=== PATIENT | female | born 1980 | race Caucasian/White ===

== ENCOUNTER 2020-01-18 01:26 | Emergency (ER) | payer OTHER, SELFPAY ==
[2020-01-18 01:28] VITALS: BP 157/82; PULSE 84; RESP 16; TEMP 37; O2SAT 100
--- NOTE | 2020-01-18 01:33 | ED.ANIMALBIT ---
HPI - Animal Bite General Chief Complaint: Skin/Abscess/Foreign Body Stated Complaint: spider bite on my leg Time Seen by Provider: 01/18/20 01:35 Source: patient Mode of arrival: ambulatory Limitations: no limitations History of Present Illness HPI narrative: Patient presents for evaluation of small sore on her left lower leg. Patient states it has been there 2 days. Patient initially thought it was a mosquito bite, then it had a chester on it and began to drain. It is red and slightly painful. No itching. No rash surrounding the area. Patient states she thought it was more red earlier but is now improved. Patient denies any fever. No history of skin infections. She denies history of diabetes. No history of oreilly water. Patient is up-to-date on her tetanus. She denies any puncture wound injury. No other lesions. Related Data Allergies Allergy/AdvReac Type Severity Reaction Status Date / Time No Known Allergies Allergy Verified 01/18/20 01:56 Review of Systems Review of Systems: Narrative: CONSTITUTIONAL: Denies fever CARDIOVASCULAR: Denies chest pain RESPIRATORY: Denies cough or dyspnea. GASTROINTESTINAL: Denies abdominal pain SKIN: Denies rash, sore to left lower extremity MUSCULOSKELETAL: Denies back pain NEUROLOGIC: Denies headache PMFSH Past Medical History Medical History (Updated 01/18/20 @ 01:47 by Marie Jacobs MD) Asthma Surgical History Surgical History (Updated 01/18/20 @ 01:43 by Marie Jacobs MD) H/O: hysterectomy Social History Social History (Updated 01/18/20 @ 01:43 by Marie Jacobs MD) Substance use: never Gender identity (if verbalized by the patient): Female Exam Narrative: Exam Narrative: GENERAL: Awake, alert, conversant HEAD: Normocephalic, atraumatic. EYES: PERRLA and EOMI. ENT: Nares clear, no rhinorrhea or epistaxis. Mucous membranes moist. NECK: Supple. CHEST: No respiratory distress, breathing even and non labored HEART: Regular rate, sinus rhythm ABDOMEN:Non distended, non tender EXTREMITIES: Normal range of motion. No edema. Mild 0.5 cm circular lesion to the medial aspect of the left lower extremity, mildly tender, mild erythema, no fluctuance, no purulent drainage. No calf pain. SKIN: Warm, dry, no rash. NEURO:No focal deficits. Alert and oriented x3 Course Vital Signs Vital signs: Vital Signs Temperature 37.0 C 01/18/20 01:28 Pulse Rate 84 01/18/20 01:28 Respiratory Rate 16 01/18/20 01:28 Blood Pressure 157/82 H 01/18/20 01:28 Pulse Oximetry 100 01/18/20 01:28 Temperature 37.0 C 01/18/20 01:28 Pulse Rate 84 01/18/20 01:28 Respiratory Rate 16 01/18/20 01:28 Blood Pressure 157/82 H 01/18/20 01:28 Pulse Oximetry 100 01/18/20 01:28 MDM - Animal Bite MDM Narrative Medical decision making narrative: Patient presenting for evaluation of sore on her left lower extremity. The time of assessment, ABCs are intact and vital signs are stable. Physical exam is notable for a small lesion which appears to have already drained as there is no current purulent head on the lesion. It is mildly tender, no fluctuance or induration. Mild erythema, mild warmth. This to me looks like an abscess that already had some active drainage. There is no current large abscess. No sign of severe cellulitis. Patient declined pain medication here. Given worsening status, pain, redness, will prescribe outpatient Keflex. Patient was then discharged home. Differential Diagnosis Differential diagnosis: Likely other (Abscess, cellulitis, envenomation, bite wound) Discharge Plan Discharge Clinical Impression: Sore on leg Patient Disposition: Home, Self-Care Condition: Stable Instructions: Antibiotic Form, Wound Infection (ED) Additional Instructions: Please contact your primary care physician for follow up from this visit. If you experience worsening pain, vomiting that does not stop, bleeding complications, chest pain
[2020-01-18 02:22] VITALS: BP 142/84; PULSE 90; RESP 20; O2SAT 98
== END 2020-01-18 02:25 | disposition home or self-care (01) ==
LOC: ANHED 02:17
PROVIDERS: Emergency Provider Emergency Medicine
DX: L98.9 Disorder of the skin and subcutaneous tissue, unspecified (principal); J45.909 Unspecified asthma, uncomplicated
CPT/HCPCS: 99283

== ENCOUNTER 2022-03-10 21:10 | Emergency (ER) | payer OTHER, SELFPAY ==
[2022-03-10 21:12] VITALS: BP 151/112; PULSE 88; RESP 18; TEMP 36.6; O2SAT 100
--- NOTE | 2022-03-10 21:33 | PC.NURSE ---
Radial and ulnar pulse in right wirst located by Doppler and marker at this time.
--- NOTE | 2022-03-10 21:40 | ED.GENADULT ---
HPI - General Adult General Chief complaint: Extremity Injury, Upper Stated complaint: brusing on right hand Time Seen by Provider: 03/10/22 21:29 History of Present Illness HPI narrative: Patient is a 41-year-old female who presents the emergency department with chief complaint of finger pain. Patient states that since January she has been having issues with some discomfort in her right upper extremity and has had dusky fingertips particularly the fifth and fourth digit on the right hand the patient states she also has an area of bruising present on the dorsum of the right distal forearm patient reports that she was seen by her primary provider sent to the emergency department at [facility] had a CTA of her upper extremity that showed no evidence of obstructing vascular process the patient was referred back to her primary who then was going to refer her to vascular and is in the process of setting that up the patient states that it is become exquisitely more painful and reports that she is not able to sleep due to the pain Related Data Allergies Allergy/AdvReac Type Severity Reaction Status Date / Time No Known Allergies Allergy Verified 03/10/22 21:22 Review of Systems Review of Systems: A 10 system review of systems was completed on the patient and is negative except for what is stated in the HPI. Nursing and ancillary documentation was reviewed. PMFSH Past Medical History Medical History Asthma Surgical History Surgical History H/O: hysterectomy Social History Social History Substance use: never Gender identity (if verbalized by the patient): Female Exam Narrative: GENERAL: Well-appearing, well-nourished, and in no acute distress. HEAD: Normocephalic, atraumatic. EYES: PERRLA and EOMI. ENT: Nares clear, no rhinorrhea or epistaxis. Mucous membranes moist. NECK: Supple. CHEST: Clear to auscultation. No respiratory distress. HEART: Regular rate and rhythm. No murmur heard. Normal peripheral pulses. ABDOMEN: Soft, nontender, nondistended, normal active bowel sounds. EXTREMITIES: Normal range of motion. No edema. SKIN: Warm, dry, there is discoloration of the tip of the fourth and fifth digit of the right hand. It is tender to the touch, there is bruising present on the dorsum of the right forearm NEURO: No focal deficits. Alert and oriented x3. PSYCH: Normal mood and affect. Course Course Emergency Course: The patient's records were reviewed from [facility] including her CTA that showed no evidence of occlusion Vital Signs Vital signs: Vital Signs Temperature 36.6 C 03/10/22 21:12 Pulse Rate 88 03/10/22 21:12 Respiratory Rate 18 03/10/22 21:12 Blood Pressure 151/112 H 03/10/22 21:12 Pulse Oximetry 100 03/10/22 21:12 Oxygen Delivery Room Air 03/10/22 21:12 Temperature 36.6 C 03/10/22 21:12 Pulse Rate 88 03/10/22 21:12 Respiratory Rate 18 03/10/22 21:12 Blood Pressure 151/112 H 03/10/22 21:12 Pulse Oximetry 100 03/10/22 21:12 Oxygen Delivery Room Air 03/10/22 21:12 Medical Decision Making Vital Signs Vital Signs: Vital Signs Temperature 36.6 C 03/10/22 21:12 Pulse Rate 88 03/10/22 21:12 Respiratory Rate 18 03/10/22 21:12 Blood Pressure 151/112 H 03/10/22 21:12 Pulse Oximetry 100 03/10/22 21:12 Oxygen Delivery Room Air 03/10/22 21:12 Temperature 36.6 C 03/10/22 21:12 Pulse Rate 88 03/10/22 21:12 Respiratory Rate 18 03/10/22 21:12 Blood Pressure 151/112 H 03/10/22 21:12 Pulse Oximetry 100 03/10/22 21:12 Oxygen Delivery Room Air 03/10/22 21:12 Lab Data Labs: Lab Results 03/10/22 Range/Units 22:01 Urine Color Yellow (Yellow) Urine Appearance Slightly cloudy (Clear) Urine pH 6.0 (5.0-9.0) Ur Specific Grav
[2022-03-10 22:12] LABS: Appearance Urine Slightly Cloudy (Clear); Bilirubin Urine Negative (Negative); Blood Urine Negative (Negative); Color Urine Yellow (Yellow); Glucose Urine UA Negative (Negative); Ketones Urine Negative (Negative); Leukocyte Esterase Ur Negative LEU/UL (Negative); Nitrate Urine Negative (Negative); Protein Urine Negative (Negative); Specific Grav Ur 1.015 (1.001-1.035); Urobilinogen Urine 0.2 mg/dL (<2.0)
[2022-03-10 22:15] LABS: Add Urine Microscopic? YES; Bacteria Urine Trace /hpf; Mucus Urine Rare /lpf; RBC Urine 0-2 /hpf (0-2); Squamous Epithelial Cell Urine Few /hpf (Few); WBC Urine 0-3 /hpf
[2022-03-10] MEDS: HYDROcodone/acetaminophen (*CRX) 5-325 MG TABLET 1 TAB PO (22:24)
--- NOTE | 2022-03-10 22:26 | PC.NURSE ---
PEr Dr. Casper and Charge nurse Kim Shah RN, pt okay to take Snyder tablet at home after d/c. Allergies confirmed and pt verbalized understanding to take medication at home and to not drive after taking it.
[2022-03-10 22:41] VITALS: BP 143/79; PULSE 86; RESP 18; O2SAT 99
== END 2022-03-10 22:42 | disposition home or self-care (01) ==
PROVIDERS: Emergency Provider Emergency Medicine
DX: I77.6 Arteritis, unspecified (principal); J45.909 Unspecified asthma, uncomplicated; Z90.710 Acquired absence of both cervix and uterus
CPT/HCPCS: 81001; 99283; A9270

== ENCOUNTER 2022-03-20 22:16 | Emergency (ER) | payer OTHER, SELFPAY ==
[2022-03-20 22:24] VITALS: BP 147/93; PULSE 101; RESP 16; TEMP 36.3; O2SAT 99
--- NOTE | 2022-03-21 01:27 | ED.GENADULT ---
HPI - General Adult General Chief complaint: Extremity Injury, Upper Stated complaint: right hand pain/bruising, denies injury Time Seen by Provider: 03/21/22 01:14 History of Present Illness HPI narrative: 41-year-old female presenting to the emergency department for evaluation of persistent finger pain. Patient states that since January she has been having issues with some discomfort in her right upper extremity and has had dusky fingertips 3rd, 4th and 5th on the right hand. patient reports that she was seen by her primary provider sent to the emergency department at [facility] had a CTA of her upper extremity that showed no evidence of obstructing vascular process the patient was referred back to her primary who then was going to refer her to vascular and is in the process of setting that up the patient states that it is become exquisitely more painful and reports that she is not able to sleep due to the pain. Patient states since the last time she was in the emergency department she feels that the symptoms have improved but patient is still having some pain. Patient did receive referral from her primary care physician to addiction psychiatrist. Patient is going to recall her primary care physician to seek follow-up with vascular. Patient states that the symptoms are intermittent. States that sometimes the duskiness does progress down the fingers towards the hand but currently it is only the fingertips. Related Data Home Medications Medication Instructions Recorded Confirmed albuterol sulfate 90 mcg/actuation inhalation 03/21/22 03/21/22 aerosol inhaler ibuprofen 200 mg capsule mg 03/21/22 03/21/22 lisinopril 5 mg tablet mg 03/21/22 Allergies Allergy/AdvReac Type Severity Reaction Status Date / Time No Known Allergies Allergy Verified 03/21/22 01:15 Review of Systems Review of Systems: CONSTITUTIONAL: Denies fever, chills, or sweats. EYES: Denies visual changes, redness, or discharge. ENT: Denies rhinorrhea, congestion, sore throat, or otalgia. CARDIOVASCULAR: Denies chest pain, palpitations, or edema. RESPIRATORY: Denies cough or dyspnea. GASTROINTESTINAL: Denies abdominal pain, nausea, vomiting, or diarrhea. GENITOURINARY: Denies dysuria or hematuria. SKIN: See HPI MUSCULOSKELETAL: Denies back pain, joint pain, or myalgia. NEUROLOGIC: Denies headache, numbness, or weakness. [facility] Past Medical History Medical History Asthma Surgical History Surgical History H/O: hysterectomy Social History Social History Substance use: never Gender identity (if verbalized by the patient): Female Exam Narrative: APPEARANCE: Well appearing, no pain, no distress, well-nourished. HEAD: normocephalic, atraumatic. EYES: PERRLA/EOMI, conjunctivae clear. NOSE: Normal no drainage NECK: Supple. No adenopathy, no masses. RESPIRATORY: Airway patent, respirations nonlabored. Clear to auscultation bilaterally, no rales, rhonchi, wheezing. CARDIOVASCULAR: Regular rate and rhythm without murmurs rubs or gallops. ABDOMINAL: Soft, nontender, nondistended, normal bowel sounds MUSCULOSKELETAL: Moves all extremities. Strength/ROM intact, No edema, No calf tenderness. NEURO: Alert. Cranial nerves II through XII intact. Good gait. Good coordination SKIN: Duskiness of the distal aspects of the third fourth and fifth fingertips normal cap refill for first and second phalanx of the affected fingers. Slowed Refill of the distal phalanx of the third, fourth and fifth finger. PSYCHIATRIC: Normal affect/mood. Course Course Emergency Course: Patient was requesting medications for pain control. Patient has had previous CTA showing normal blood flow. Patient is intending to seek out patient follow-up with vascular surgery. Patient does have follow-up scheduled with rheumatol
[2022-03-21] MEDS: HYDROcodone/acetaminophen (*CRX) 5-325 MG TABLET 1 TAB PO (01:49)
== END 2022-03-21 01:50 | disposition home or self-care (01) ==
PROVIDERS: Emergency Provider Emergency Medicine
DX: I77.6 Arteritis, unspecified (principal); J45.909 Unspecified asthma, uncomplicated; Z90.710 Acquired absence of both cervix and uterus
CPT/HCPCS: 99283; A9270